=== PATIENT | male | born 1960 | race African-American/Black ===

== ENCOUNTER 2018-03-20 15:58 | Emergency (ER) | payer SELFPAY ==
[~2018-03-20] VITALS: Ht 185.4 cm; Wt 82.0 kg
[2018-03-20 16:09] VITALS: BP 142/92
== END 2018-03-20 19:04 | disposition left against medical advice (07) ==
LOC: ER 15:58
DX: R10.9 Unspecified abdominal pain (principal); Z53.21 Procedure and treatment not carried out due to patient leaving prior to being seen by health care provider

== ENCOUNTER 2018-09-01 18:00 | Emergency (ER) | payer MEDICAID ==
[~2018-09-01] VITALS: Ht 182.9 cm; Wt 77.0 kg
[2018-09-01] MEDS ORDERED: SODIUM CHLORIDE 0.9% 1,000 ML IV ONE (19:31)
[2018-09-01 19:42] LABS: BASOPHILS % 1.9 % (0.0-2.0); CHLORIDE 104 mEq/L (98-107); EOSINOPHILS % 0.3 % (0.0-5.0); HEMATOCRIT. 34.3 % (42.0-52.0); HEMOGLOBIN. 11.4 g/dL (14.0-18.0); LYMPHOCYTES % 33.9 % (20.0-50.0); MEAN CORPUSCULAR HEMOGLOBIN 29.6 pg (28.0-32.0); MEAN CORPUSCULAR VOLUME 89.4 fL (80.0-94.0); MEAN PLATELET VOLUME 6.8 fl (7.4-10.4); MONOCYTES % 4.9 % (2.0-8.0); PLATELET 285 x1000/uL (130-400); RED BLOOD CELL COUNT 3.84 mill/uL (4.7-6.1)
[2018-09-01] MEDS ORDERED: FAMOTIDINE 20MG/2ML VIAL IV ONE (19:45)
[2018-09-01 19:46] LABS: INR 1.1
[2018-09-01 20:42] LABS: PLATELET ESTIMATE NORMAL
[2018-09-01 22:10] LABS: ETHANOL BLOOD 428 mg/dL
[2018-09-02 13:40] VITALS: BP 120/78
== END 2018-09-02 13:41 | disposition home or self-care (01) ==
LOC: ER 18:00
DX: R07.89 Other chest pain (principal); F10.229 Alcohol dependence with intoxication, unspecified; E11.9 Type 2 diabetes mellitus without complications; I10 Essential (primary) hypertension; E78.00 Pure hypercholesterolemia, unspecified; H40.9 Unspecified glaucoma; F17.210 Nicotine dependence, cigarettes, uncomplicated; E86.0 Dehydration; D64.9 Anemia, unspecified; Y90.8 Blood alcohol level of 240 mg/100 ml or more; Z59.0 Homelessness; Z71.6 Tobacco abuse counseling
CPT/HCPCS: 36415; 71045; 80053; 80320; 82962; 83690; 83880; 84484; 85025; 85610; 93005; 96374; 99284; 99406; J3490; J7030; Z7610; G0480

== ENCOUNTER 2020-11-27 11:36 | Emergency (ER) | payer MEDICAID ==
[~2020-11-27] VITALS: Ht 177.8 cm; Wt 82.0 kg
[2020-11-27 12:31] LABS: BASOPHILS % 1.2 % (0.0-2.0); EOSINOPHILS % 2.3 % (0.0-5.0); HEMATOCRIT. 37.4 % (42.0-52.0); HEMOGLOBIN. 12.2 g/dL (14.0-18.0); LYMPHOCYTES % 35.7 % (20.0-50.0); MEAN CORPUSCULAR HEMOGLOBIN 34.2 pg (28.0-32.0); MEAN CORPUSCULAR VOLUME 104.7 fL (80.0-94.0); MEAN PLATELET VOLUME 7.4 fl (7.4-10.4); MONOCYTES % 12.9 % (2.0-8.0); NEUTROPHILS % 47.9 % (40.0-76.0); PLATELET 181 x1000/uL (130-400); RED BLOOD CELL COUNT 3.57 mill/uL (4.7-6.1)
[2020-11-27] MEDS ORDERED: DICYCLOMINE 10 MG/5 ML ORAL SYR PO STA (12:31)
[2020-11-27] MEDS ORDERED: MAGNESIUM/ALUMINUM HYDROXIDE/SIMETHICONE 30ML UDC PO STA (12:31)
[2020-11-27] MEDS ORDERED: VISCOUS LIDOCAINE 2% 15 ML UDC PO STA (12:31)
[2020-11-27 12:34] LABS: CHLORIDE 118 mEq/L (98-107)
[2020-11-27 13:23] LABS: INR 0.9; PROTHROMBIN TIME 10.2 sec (9.6-11.0)
[2020-11-27 14:34] LABS: CLARITY URINE CLEAR (CLEAR); COLOR URINE YELLOW (YELLOW); KETONES URINE NEGATIVE (NEGATIVE); LEUKOCYTE ESTERASE URINE NEGATIVE (NEGATIVE); NITRITE URINE NEGATIVE (NEGATIVE); OCCULT BLOOD URINE NEGATIVE (NEGATIVE); PH URINE 6.5 (4.5-8.0); PROTEIN URINE TRACE (NEGATIVE); SPECIFIC GRAVITY URINE 1.012 (1.005-1.030); UROBILINOGEN URINE 0.2 E.U./dL (0.2-1.0)
[2020-11-27 17:04] VITALS: BP 109/73
== END 2020-11-27 17:04 | disposition home or self-care (01) ==
LOC: ER 11:36
DX: R10.13 Epigastric pain (principal); E78.00 Pure hypercholesterolemia, unspecified; I12.9 Hypertensive chronic kidney disease with stage 1 through stage 4 chronic kidney disease, or unspecified chronic kidney disease; N18.9 Chronic kidney disease, unspecified; Z98.890 Other specified postprocedural states
CPT/HCPCS: 36415; 74018; 80053; 81003; 85025; 99285

== ENCOUNTER 2020-11-27 18:46 | Inpatient (IN) | payer MEDICAID ==
[~2020-11-27] VITALS: Ht 190.5 cm; Wt 85.3 kg
[2020-11-27] MEDS ORDERED: MAGNESIUM/ALUMINUM HYDROXIDE/SIMETHICONE 30ML UDC PO STA (20:11)
[2020-11-27] MEDS ORDERED: SODIUM CHLORIDE 0.9% 1000ML BAG (SEPSIS BOLUS) IV ONE (20:45)
[2020-11-27 22:45] LABS: CLARITY URINE CLEAR (CLEAR); COLOR URINE YELLOW (YELLOW); KETONES URINE NEGATIVE (NEGATIVE); LEUKOCYTE ESTERASE URINE NEGATIVE (NEGATIVE); NITRITE URINE NEGATIVE (NEGATIVE); OCCULT BLOOD URINE NEGATIVE (NEGATIVE); PH URINE 6.5 (4.5-8.0); PROTEIN URINE NEGATIVE (NEGATIVE); SPECIFIC GRAVITY URINE 1.014 (1.005-1.030); UROBILINOGEN URINE 0.2 E.U./dL (0.2-1.0)
[2020-11-27 22:56] LABS: *AMPHETAMINES SCREEN URINE NEGATIVE (NEGATIVE); *BARBITURATES SCREEN URINE NEGATIVE (NEGATIVE); *BENZODIAZEPINES SCREEN URINE NEGATIVE (NEGATIVE); *COCAINE SCREEN URINE NEGATIVE (NEGATIVE); METHADONE URINE SCREEN NEGATIVE (NEGATIVE)
[2020-11-27 22:58] LABS: CANNABINOID URINE SCREEN NEGATIVE (NEGATIVE); OPIATES URINE SCREEN NEGATIVE (NEGATIVE); PHENCYCLIDINE URINE SCREEN NEGATIVE (NEGATIVE)
[2020-11-27 23:37] LABS: BASOPHILS % 0.7 % (0.0-2.0); EOSINOPHILS % 3.2 % (0.0-5.0); HEMATOCRIT. 35.8 % (42.0-52.0); HEMOGLOBIN. 12.1 g/dL (14.0-18.0); LYMPHOCYTES % 28.3 % (20.0-50.0); MEAN CORPUSCULAR HEMOGLOBIN 34.9 pg (28.0-32.0); MEAN CORPUSCULAR VOLUME 103.3 fL (80.0-94.0); MEAN PLATELET VOLUME 7.3 fl (7.4-10.4); MONOCYTES % 10.9 % (2.0-8.0); NEUTROPHILS % 56.9 % (40.0-76.0); PLATELET 165 x1000/uL (130-400); RED BLOOD CELL COUNT 3.47 mill/uL (4.7-6.1); RED CELL DISTRIBUTION WIDTH 13.3 % (11.6-14.6)
[2020-11-27 23:48] LABS: PARTIAL THROMBOPLASTIN TIME 26.8 sec (23.4-31.0); PROTHROMBIN TIME 10.3 sec (9.6-11.0)
[2020-11-28] MEDS ORDERED: ASPIRIN 325MG EC TABLET PO ONE
[2020-11-28 00:04] LABS: CHLORIDE 117 mEq/L (98-107)
[2020-11-28 00:33] LABS: ETHANOL BLOOD 376 mg/dL
[2020-11-28] MEDS ORDERED: ACETAMINOPHEN 325MG TABLET PO PRN (03:15)
[2020-11-28] MEDS ORDERED: CLONIDINE 0.1MG TABLET PO PRN (03:15)
[2020-11-28] MEDS ORDERED: DIPHENHYDRAMINE 50MG/ML VIAL IV PRN (03:15)
[2020-11-28] MEDS ORDERED: MAGNESIUM/ALUMINUM HYDROXIDE/SIMETHICONE 30ML UDC PO PRN (03:15)
[2020-11-28] MEDS ORDERED: LORAZEPAM 2MG/ML CPJ IV PRN (03:15)
[2020-11-28] MEDS ORDERED: [UNRECOGNIZED DRUG - REMARK] IV NR (04:00)
[2020-11-28] MEDS ORDERED: MAGNESIUM 2 G PREMIX 50 ML IV NR (05:00)
[2020-11-28] MEDS ORDERED: POTASSIUM CHLORIDE 20MEQ TABLET SR PO NR (05:00)
[2020-11-28 05:45] VITALS: BP 146/79
[2020-11-28] MEDS: OMEPRAZOLE 20MG CAPSULE EXTENDED RELEASE PO SCH ×2 (06:09→17:47)
[2020-11-28 06:37] VITALS: BP 146/79
[2020-11-28 08:00] VITALS: BP 123/72
[2020-11-28 12:00] VITALS: BP 149/86
[2020-11-28] MEDS: ACETAMINOPHEN 325MG TABLET PO PRN ×2 (13:43→20:37)
[2020-11-28 16:00] VITALS: BP 153/79
[2020-11-28] MEDS: ONDANSETRON HCL 4MG/2ML INJ IV PRN ×2 (17:47→23:39)
[2020-11-28] MEDS: SUCRALFATE 1 G/10 ML UDC PO SCH ×2 (17:47→20:32)
[2020-11-28 20:00] VITALS: BP 149/84
[2020-11-28] MEDS: ZOLPIDEM TARTRATE 5MG TABLET PO PRN (23:40)
[2020-11-29] VITALS: BP 156/85
[2020-11-29] MEDS: VANCOMYCIN 1,500 MG in DEXT 5% WATER 250 ML IV SCH ×3 (01:52→23:35)
[2020-11-29 04:00] VITALS: BP 140/87
[2020-11-29] MEDS: ACETAMINOPHEN 325MG TABLET PO PRN ×2 (05:40→19:30)
[2020-11-29] MEDS: OMEPRAZOLE 20MG CAPSULE EXTENDED RELEASE PO SCH ×2 (06:13→18:43)
[2020-11-29] MEDS: SUCRALFATE 1 G/10 ML UDC PO SCH ×4 (06:13→21:51)
[2020-11-29 08:00] VITALS: BP 148/88
[2020-11-29] MEDS: THIAMINE HCL 100MG TABLET PO SCH (11:21)
[2020-11-29] MEDS: ONDANSETRON HCL 4MG/2ML INJ IV PRN (11:22)
[2020-11-29 12:00] VITALS: BP 132/67
[2020-11-29 12:45] LABS: BASOPHILS % 0.6 % (0.0-2.0); EOSINOPHILS % 0.8 % (0.0-5.0); HEMOGLOBIN. 11.8 g/dL (14.0-18.0); LYMPHOCYTES % 15.8 % (20.0-50.0); MEAN CORPUSCULAR HEMOGLOBIN 34.8 pg (28.0-32.0); MEAN CORPUSCULAR VOLUME 103.1 fL (80.0-94.0); MEAN PLATELET VOLUME 8.2 fl (7.4-10.4); MONOCYTES % 10.5 % (2.0-8.0); NEUTROPHILS % 72.3 % (40.0-76.0); PLATELET 171 x1000/uL (130-400); RED CELL DISTRIBUTION WIDTH 12.4 % (11.6-14.6)
[2020-11-29 12:50] LABS: CHLORIDE 104 mEq/L (98-107)
[2020-11-29 16:00] VITALS: BP 137/67
[2020-11-29] MEDS: GUAIFENESIN 200MG TABLET PO PRN (18:41)
[2020-11-29 20:00] VITALS: BP 142/88
[2020-11-29] MEDS: ZOLPIDEM TARTRATE 5MG TABLET PO PRN (21:51)
[2020-11-30] VITALS: BP 148/82
[2020-11-30] MEDS: GUAIFENESIN 200MG TABLET PO PRN ×4 (02:26→21:46)
[2020-11-30 04:00] VITALS: BP 147/89
[2020-11-30] MEDS: ACETAMINOPHEN 325MG TABLET PO PRN ×3 (06:11→21:05)
[2020-11-30] MEDS: OMEPRAZOLE 20MG CAPSULE EXTENDED RELEASE PO SCH ×2 (06:11→17:28)
[2020-11-30] MEDS: SUCRALFATE 1 G/10 ML UDC PO SCH ×4 (06:11→21:05)
[2020-11-30 07:11] LABS: CHLORIDE 105 mEq/L (98-107)
[2020-11-30 08:00] VITALS: BP 139/80
[2020-11-30] MEDS: THIAMINE HCL 100MG TABLET PO SCH (08:16)
[2020-11-30 12:00] VITALS: BP 139/90
[2020-11-30] MEDS: VANCOMYCIN 1,500 MG in DEXT 5% WATER 250 ML IV SCH (12:12)
[2020-11-30] MEDS ORDERED: CEFTRIAXONE 1,000 MG in DEXTROSE 5% WATER 50 ML IV SCH (13:00)
[2020-11-30 16:00] VITALS: BP 131/83
[2020-11-30] MEDS: LOPERAMIDE HCL 2MG CAPSULE PO PRN (17:28)
[2020-11-30] MEDS: KETOROLAC 30MG/ML VIAL IV PRN ×2 (17:33→21:47)
[2020-11-30 20:00] VITALS: BP 144/79
[2020-11-30] MEDS: ZOLPIDEM TARTRATE 5MG TABLET PO PRN (21:52)
[2020-12-01] VITALS: BP 114/60
[2020-12-01 04:00] VITALS: BP 119/67
[2020-12-01] MEDS: LOPERAMIDE HCL 2MG CAPSULE PO PRN ×3 (05:00→17:49)
[2020-12-01] MEDS: ACETAMINOPHEN 325MG TABLET PO PRN ×2 (05:00→17:54)
[2020-12-01] MEDS: KETOROLAC 30MG/ML VIAL IV PRN ×3 (05:01→17:50)
[2020-12-01] MEDS: GUAIFENESIN 200MG TABLET PO PRN ×3 (05:06→17:49)
[2020-12-01] MEDS: OMEPRAZOLE 20MG CAPSULE EXTENDED RELEASE PO SCH ×2 (07:00→17:49)
[2020-12-01] MEDS: SUCRALFATE 1 G/10 ML UDC PO SCH ×4 (07:01→21:05)
[2020-12-01 08:00] VITALS: BP 137/84
[2020-12-01] MEDS: THIAMINE HCL 100MG TABLET PO SCH (09:10)
[2020-12-01 12:00] VITALS: BP 133/69
[2020-12-01] MEDS: CEFTRIAXONE 2 G in DEXTROSE 5% WATER 50 ML IV SCH (13:25)
[2020-12-01 16:00] VITALS: BP 147/66
[2020-12-01 20:00] VITALS: BP 145/82
[2020-12-02] VITALS: BP 132/86
[2020-12-02] MEDS: KETOROLAC 30MG/ML VIAL IV PRN ×3 (01:14→20:50)
[2020-12-02] MEDS: GUAIFENESIN 200MG TABLET PO PRN ×4 (01:14→20:49)
[2020-12-02 04:00] VITALS: BP 138/70
[2020-12-02] MEDS: OMEPRAZOLE 20MG CAPSULE EXTENDED RELEASE PO SCH ×2 (06:15→17:54)
[2020-12-02] MEDS: SUCRALFATE 1 G/10 ML UDC PO SCH ×4 (06:15→20:49)
[2020-12-02 08:00] VITALS: BP 141/85
[2020-12-02] MEDS: ACETAMINOPHEN 325MG TABLET PO PRN (08:48)
[2020-12-02] MEDS: THIAMINE HCL 100MG TABLET PO SCH (08:48)
[2020-12-02 12:00] VITALS: BP 139/72
[2020-12-02] MEDS: CEFTRIAXONE 2 G in DEXTROSE 5% WATER 50 ML IV SCH (13:48)
[2020-12-02 16:00] VITALS: BP 147/67
[2020-12-02 20:00] VITALS: BP 175/85
[2020-12-02] MEDS: ZOLPIDEM TARTRATE 5MG TABLET PO PRN (20:49)
[2020-12-03] VITALS: BP 158/89
[2020-12-03 04:00] VITALS: BP 139/74
[2020-12-03] MEDS: GUAIFENESIN 200MG TABLET PO PRN ×2 (04:24→08:42)
[2020-12-03] MEDS: KETOROLAC 30MG/ML VIAL IV PRN (04:24)
[2020-12-03] MEDS: OMEPRAZOLE 20MG CAPSULE EXTENDED RELEASE PO SCH (06:40)
[2020-12-03] MEDS: LOPERAMIDE HCL 2MG CAPSULE PO PRN (06:40)
[2020-12-03] MEDS: SUCRALFATE 1 G/10 ML UDC PO SCH ×2 (06:41→12:30)
[2020-12-03 08:00] VITALS: BP 127/79
[2020-12-03] MEDS: THIAMINE HCL 100MG TABLET PO SCH (08:42)
[2020-12-03 12:00] VITALS: BP 127/72
[2020-12-03] MEDS: CEFTRIAXONE 2 G in DEXTROSE 5% WATER 50 ML IV SCH (12:30)
[2020-12-03 14:43] VITALS: BP 146/87
[2020-12-03 16:00] VITALS: BP 146/87
== END 2020-12-03 17:00 | disposition home or self-care (01) | DRG 720 ==
LOC: ER 18:46 → ENRESERV 11-28 01:50 → MICUSO 11-28 02:11 → 8WST 11-28 04:37
PROVIDERS: ADMIT Internal Medicine; ATTEND Internal Medicine
DX: A41.9 Sepsis, unspecified organism (principal); E87.1 Hypo-osmolality and hyponatremia; S22.32XA Fracture of one rib, left side, initial encounter for closed fracture; K29.70 Gastritis, unspecified, without bleeding; E87.6 Hypokalemia; F10.229 Alcohol dependence with intoxication, unspecified; Y90.8 Blood alcohol level of 240 mg/100 ml or more; K86.1 Other chronic pancreatitis; N28.89 Other specified disorders of kidney and ureter; E78.00 Pure hypercholesterolemia, unspecified; F17.200 Nicotine dependence, unspecified, uncomplicated; I10 Essential (primary) hypertension; Z20.822 Contact with and (suspected) exposure to COVID-19; K52.9 Noninfective gastroenteritis and colitis, unspecified; X58.XXXA Exposure to other specified factors, initial encounter; Z59.0 Homelessness; Y93.89 Activity, other specified; Y92.89 Other specified places as the place of occurrence of the external cause; Y99.8 Other external cause status
CPT/HCPCS: 36415; 71045; 71100; 74176; 80048; 80053; 80202; 80305; 80320; 81003; 83605; 83880; 84145; 84484; 85025; 85651; 86140; 87077; 87186; 87426; 93005; 93306; 99285; J0696; J1200; J1885; J2060; J2405; J3370; J3411; J3475; J3490; J7030; J7040; J7060; J7070; G0480

== ENCOUNTER 2020-12-28 12:42 | Emergency (ER) | payer MEDICAID ==
[~2020-12-28] VITALS: Ht 182.9 cm; Wt 88.0 kg
[2020-12-28 12:49] VITALS: BP 128/72
[2020-12-28 14:01] LABS: CLARITY URINE CLEAR (CLEAR); COLOR URINE YELLOW (YELLOW); KETONES URINE 1+ (NEGATIVE); LEUKOCYTE ESTERASE URINE 1+ (NEGATIVE); NITRITE URINE NEGATIVE (NEGATIVE); OCCULT BLOOD URINE TRACE (NEGATIVE); PROTEIN URINE 1+ (NEGATIVE); SPECIFIC GRAVITY URINE 1.013 (1.005-1.030)
[2020-12-28 14:19] LABS: *AMPHETAMINES SCREEN URINE NEGATIVE (NEGATIVE); *BARBITURATES SCREEN URINE NEGATIVE (NEGATIVE); *BENZODIAZEPINES SCREEN URINE NEGATIVE (NEGATIVE); CANNABINOID URINE SCREEN NEGATIVE (NEGATIVE); OPIATES URINE SCREEN NEGATIVE (NEGATIVE); PHENCYCLIDINE URINE SCREEN NEGATIVE (NEGATIVE)
[2020-12-28 14:20] LABS: *COCAINE SCREEN URINE NEGATIVE (NEGATIVE); METHADONE URINE SCREEN NEGATIVE (NEGATIVE)
== END 2020-12-28 15:43 | disposition left against medical advice (07) ==
LOC: ER 12:42
DX: R10.9 Unspecified abdominal pain (principal); M54.9 Dorsalgia, unspecified; N28.89 Other specified disorders of kidney and ureter; E78.00 Pure hypercholesterolemia, unspecified; I10 Essential (primary) hypertension
CPT/HCPCS: 71045; 72100; 74176; 76870; 80305; 81003; 93005; 93976; 99285

== ENCOUNTER 2020-12-31 14:09 | Inpatient (IN) | payer MEDICAID ==
[~2020-12-31] VITALS: Ht 185.4 cm; Wt 71.2 kg
[2020-12-31] MEDS ORDERED: ONDANSETRON HCL 4MG/2ML INJ IV STA (14:18)
[2020-12-31] MEDS ORDERED: MORPHINE SULFATE 4 MG/ML CPJ (NOT FOR IM USE) IV STA (14:18)
[2020-12-31] MEDS ORDERED: SODIUM CHLORIDE 0.9% 1,000 ML IV ONE ×2 (14:30→16:15)
[2020-12-31 14:51] LABS: HEMATOCRIT. 40.3 % (42.0-52.0); HEMOGLOBIN. 13.3 g/dL (14.0-18.0); MEAN CORPUSCULAR HEMOGLOBIN 33.4 pg (28.0-32.0); MEAN CORPUSCULAR VOLUME 101.7 fL (80.0-94.0); MEAN PLATELET VOLUME 8.2 fl (7.4-10.4); PLATELET 199 x1000/uL (130-400); RED BLOOD CELL COUNT 3.97 mill/uL (4.7-6.1); RED CELL DISTRIBUTION WIDTH 14.2 % (11.6-14.6)
[2020-12-31 14:58] LABS: INR 1.1
[2020-12-31] MEDS ORDERED: MORPHINE SULFATE 2 MG/ML CPJ (NOT FOR IM USE) IV NR ×2 (15:00→16:40)
[2020-12-31 15:07] LABS: CHLORIDE 96 mEq/L (98-107)
[2020-12-31 15:12] LABS: ETHANOL BLOOD 25 mg/dL
[2020-12-31 16:04] LABS: PLATELET ESTIMATE NORMAL
[2020-12-31 16:14] LABS: KETONES URINE 4+ (NEGATIVE); LEUKOCYTE ESTERASE URINE NEGATIVE (NEGATIVE); NITRITE URINE NEGATIVE (NEGATIVE); OCCULT BLOOD URINE TRACE (NEGATIVE); PROTEIN URINE 2+ (NEGATIVE); SPECIFIC GRAVITY URINE 1.023 (1.005-1.030)
[2020-12-31] MEDS ORDERED: PIPERACILLIN/TAZ 3.375G PREMIX 50 ML IV NR (16:15)
[2020-12-31] MEDS ORDERED: MORPHINE SULFATE 4 MG/ML CPJ (NOT FOR IM USE) IV ONE (16:15)
[2020-12-31] MEDS ORDERED: VANCOMYCIN 1 G PREMIX 200 ML IV NR (16:15)
[2020-12-31 16:19] LABS: CLARITY URINE SLIGHTLY HAZY (CLEAR); COLOR URINE DARK YELLOW (YELLOW)
[2020-12-31 17:17] LABS: *AMPHETAMINES SCREEN URINE NEGATIVE (NEGATIVE); *BARBITURATES SCREEN URINE NEGATIVE (NEGATIVE); *BENZODIAZEPINES SCREEN URINE NEGATIVE (NEGATIVE)
[2020-12-31 17:18] LABS: *COCAINE SCREEN URINE PRESUMTIVE POSITIVE (NEGATIVE); CANNABINOID URINE SCREEN NEGATIVE (NEGATIVE); METHADONE URINE SCREEN NEGATIVE (NEGATIVE); OPIATES URINE SCREEN NEGATIVE (NEGATIVE); PHENCYCLIDINE URINE SCREEN PRESUMTIVE POSITIVE (NEGATIVE)
[2020-12-31 22:05] VITALS: BP 150/84
[2020-12-31] MEDS ORDERED: ENOXAPARIN 40MG/0.4ML SYR SUBCUT SCH (23:30)
[2020-12-31] MEDS ORDERED: DOCUSATE SODIUM 100MG CAPSULE PO PRN (23:30)
[2020-12-31] MEDS ORDERED: IPRATROPIUM/ALBUTEROL 0.5-3(2.5)MG/3ML NEB NEB PRN (23:30)
[2020-12-31] MEDS ORDERED: ACETAMINOPHEN 325MG TABLET PO PRN ×2 (23:30)
[2020-12-31] MEDS: ONDANSETRON HCL 4MG/2ML INJ IV PRN (23:30)
[2020-12-31] MEDS ORDERED: NITROGLYCERIN 0.4MG TABLET SL SL PRN (23:30)
[2020-12-31] MEDS ORDERED: TRAMADOL 50MG TABLET PO PRN (23:30)
[2020-12-31] MEDS ORDERED: DEXTROSE 50% WATER 50ML SYRINGE IV PRN (23:30)
[2020-12-31] MEDS ORDERED: LORAZEPAM 2MG/ML CPJ IV PRN (23:30)
[2020-12-31] MEDS ORDERED: GUAIFENESIN 200MG/10ML SUGAR FREE UDC PO PRN (23:30)
[2020-12-31] MEDS: SODIUM CHLORIDE 0.9% 1,000 ML IV SCH (23:57)
[2020-12-31] MEDS: KETOROLAC 30MG/ML VIAL IV PRN (23:58)
[2020-12-31] MEDS: ZOLPIDEM TARTRATE 5MG TABLET PO PRN (23:59)
[2021-01-01] VITALS (7 sets, daily range): BP systolic 118–155; BP diastolic 67–93
[2021-01-01] MEDS: LEVOFLOXACIN 500MG PREMIX 100 ML IV SCH (00:17)
[2021-01-01] MEDS: CLONIDINE 0.1MG TABLET PO PRN (00:53)
[2021-01-01] MEDS: BLOOD SUGAR DIAGNOSTIC STRIP TEST SCH ×4 (05:43→21:04)
[2021-01-01] MEDS: DILTIAZEM HCL 60MG TABLET PO SCH ×3 (05:43→21:06)
[2021-01-01] MEDS: ONDANSETRON HCL 4MG/2ML INJ IV PRN ×2 (05:45→11:47)
[2021-01-01] MEDS: KETOROLAC 30MG/ML VIAL IV PRN (06:12)
[2021-01-01] MEDS: INSULIN LISPRO 100 UNITS/ML SUBCUT SCH ×4 (06:20→21:00)
[2021-01-01 06:26] LABS: HEMATOCRIT. 38.4 % (42.0-52.0); HEMOGLOBIN. 12.7 g/dL (14.0-18.0); MEAN CORPUSCULAR VOLUME 103.2 fL (80.0-94.0); MEAN PLATELET VOLUME 8.9 fl (7.4-10.4); PLATELET 172 x1000/uL (130-400); RED BLOOD CELL COUNT 3.72 mill/uL (4.7-6.1); RED CELL DISTRIBUTION WIDTH 14.4 % (11.6-14.6)
[2021-01-01 06:31] LABS: CHLORIDE 102 mEq/L (98-107)
[2021-01-01 06:42] LABS: TOTAL IRON BINDING CAPACITY 292 ug/dL (250-450)
[2021-01-01 06:43] LABS: PHOSPHORUS 2.4 mg/dL (2.5-4.9)
[2021-01-01 06:44] LABS: LDL CHOLESTEROL 84 mg/dL (5-100)
[2021-01-01 06:46] LABS: AMYLASE 55 IU/L (25-115)
[2021-01-01 06:47] LABS: HDL CHOLESTEROL 109 mg/dL (40-59)
[2021-01-01 07:13] LABS: FOLIC ACID (FOLATE) SERUM 11.4 ng/mL (>5.38)
[2021-01-01] MEDS: SODIUM CHLORIDE 0.9% 1,000 ML IV SCH ×2 (08:51→15:57)
[2021-01-01] MEDS: PANTOPRAZOLE SODIUM 40 MG/VIAL IV SCH (08:52)
[2021-01-01] MEDS ORDERED: ENOXAPARIN 30MG/0.3ML SYR SUBCUT SCH (09:00)
[2021-01-01] MEDS ORDERED: POTASSIUM CHLORIDE 20MEQ/PACKET PO NR (11:30)
[2021-01-01] MEDS ORDERED: POTASSIUM PHOS,M-BASIC-D-BASIC 20 MMOL in DEXT 5% WATER 243.3333 ML IV SCH (13:00)
[2021-01-01] MEDS ORDERED: MAGNESIUM 2 G PREMIX 50 ML IV SCH (13:00)
[2021-01-01 18:12] LABS: PLATELET ESTIMATE NORMAL
[2021-01-01] MEDS: ENOXAPARIN 40MG/0.4ML SYR SUBCUT SCH (21:04)
[2021-01-01] MEDS: ZOLPIDEM TARTRATE 5MG TABLET PO PRN (21:05)
[2021-01-02] VITALS: BP 118/57
[2021-01-02] MEDS: LEVOFLOXACIN 500MG PREMIX 100 ML IV SCH (00:31)
[2021-01-02] MEDS: KETOROLAC 30MG/ML VIAL IV PRN ×3 (00:38→15:31)
[2021-01-02 04:00] VITALS: BP_SYST 108; BP_SYST 112; BP_DIAS 69
[2021-01-02] MEDS: SODIUM CHLORIDE 0.9% 1,000 ML IV SCH ×2 (04:16→14:20)
[2021-01-02] MEDS: DILTIAZEM HCL 60MG TABLET PO SCH ×3 (05:00→21:26)
[2021-01-02] MEDS: BLOOD SUGAR DIAGNOSTIC STRIP TEST SCH ×4 (05:40→21:25)
[2021-01-02] MEDS: INSULIN LISPRO 100 UNITS/ML SUBCUT SCH ×4 (06:02→21:00)
[2021-01-02 08:00] VITALS: BP 141/76
[2021-01-02] MEDS: PANTOPRAZOLE SODIUM 40 MG/VIAL IV SCH (09:04)
[2021-01-02 10:39] LABS: BASOPHILS % 0.2 % (0.0-2.0); EOSINOPHILS % 0.6 % (0.0-5.0); HEMOGLOBIN. 11.2 g/dL (14.0-18.0); LYMPHOCYTES % 7.8 % (20.0-50.0); MEAN CORPUSCULAR HEMOGLOBIN 37.5 pg (28.0-32.0); MEAN CORPUSCULAR VOLUME 104.4 fL (80.0-94.0); MEAN PLATELET VOLUME 8.7 fl (7.4-10.4); NEUTROPHILS % 85.4 % (40.0-76.0); PLATELET 119 x1000/uL (130-400); RED BLOOD CELL COUNT 2.97 mill/uL (4.7-6.1); RED CELL DISTRIBUTION WIDTH 14.5 % (11.6-14.6)
[2021-01-02 10:53] LABS: CHLORIDE 106 mEq/L (98-107)
[2021-01-02 12:00] VITALS: BP 135/80
[2021-01-02] MEDS ORDERED: POTASSIUM CHLORIDE 20MEQ TABLET SR PO NR (12:45)
[2021-01-02] MEDS ORDERED: POTASSIUM PHOS,M-BASIC-D-BASIC 30 MMOL in SODIUM CHLORIDE 0.9% 500 ML IV SCH (14:00)
[2021-01-02 16:00] VITALS: BP 128/71
[2021-01-02 20:00] VITALS: BP 130/76
[2021-01-02] MEDS: ENOXAPARIN 40MG/0.4ML SYR SUBCUT SCH (21:25)
[2021-01-02] MEDS: ZOLPIDEM TARTRATE 5MG TABLET PO PRN (22:30)
[2021-01-03] VITALS: BP 134/66
[2021-01-03] MEDS: LEVOFLOXACIN 500MG PREMIX 100 ML IV SCH (00:40)
[2021-01-03] MEDS: SODIUM CHLORIDE 0.9% 1,000 ML IV SCH ×2 (00:40→08:47)
[2021-01-03] MEDS: MAGNESIUM/ALUMINUM HYDROXIDE/SIMETHICONE 30ML UDC PO PRN ×3 (00:56→21:02)
[2021-01-03 04:00] VITALS: BP 126/63
[2021-01-03] MEDS: DILTIAZEM HCL 60MG TABLET PO SCH ×3 (05:07→21:02)
[2021-01-03] MEDS: BLOOD SUGAR DIAGNOSTIC STRIP TEST SCH ×4 (06:28→21:02)
[2021-01-03] MEDS: INSULIN LISPRO 100 UNITS/ML SUBCUT SCH ×4 (06:28→21:00)
[2021-01-03 08:00] VITALS: BP 141/93
[2021-01-03] MEDS: PANTOPRAZOLE SODIUM 40 MG/VIAL IV SCH (08:46)
[2021-01-03] MEDS: KETOROLAC 30MG/ML VIAL IV PRN ×3 (08:47→22:44)
[2021-01-03 12:00] VITALS: BP 118/68
[2021-01-03 16:00] VITALS: BP 120/74
[2021-01-03] MEDS: LEVOFLOXACIN 500MG TABLET PO SCH (18:02)
[2021-01-03 20:00] VITALS: BP 141/79
[2021-01-03] MEDS: ENOXAPARIN 40MG/0.4ML SYR SUBCUT SCH (21:02)
[2021-01-03] MEDS: ZOLPIDEM TARTRATE 5MG TABLET PO PRN (22:20)
[2021-01-04] VITALS: BP 114/70
[2021-01-04 04:00] VITALS: BP 130/76
[2021-01-04] MEDS: DILTIAZEM HCL 60MG TABLET PO SCH ×3 (05:04→20:52)
[2021-01-04] MEDS: BLOOD SUGAR DIAGNOSTIC STRIP TEST SCH ×4 (05:55→20:52)
[2021-01-04] MEDS: INSULIN LISPRO 100 UNITS/ML SUBCUT SCH ×4 (05:55→20:52)
[2021-01-04 08:00] VITALS: BP 118/71
[2021-01-04] MEDS: PANTOPRAZOLE 40MG DR TABLET PO SCH (08:28)
[2021-01-04] MEDS: KETOROLAC 30MG/ML VIAL IV PRN (08:29)
[2021-01-04 12:00] VITALS: BP 125/89
[2021-01-04] MEDS: LEVOFLOXACIN 500MG TABLET PO SCH (12:17)
[2021-01-04 16:00] VITALS: BP 130/86
[2021-01-04 20:00] VITALS: BP 118/85
[2021-01-04] MEDS: ENOXAPARIN 40MG/0.4ML SYR SUBCUT SCH (20:51)
[2021-01-04] MEDS: ZOLPIDEM TARTRATE 5MG TABLET PO PRN (20:58)
[2021-01-04] MEDS: MAGNESIUM/ALUMINUM HYDROXIDE/SIMETHICONE 30ML UDC PO PRN (20:58)
[2021-01-05] VITALS: BP 114/66
[2021-01-05 04:00] VITALS: BP 104/73
[2021-01-05] MEDS: CLONIDINE 0.1MG TABLET PO PRN (06:10)
[2021-01-05] MEDS: MAGNESIUM/ALUMINUM HYDROXIDE/SIMETHICONE 30ML UDC PO PRN (06:10)
[2021-01-05] MEDS: BLOOD SUGAR DIAGNOSTIC STRIP TEST SCH (06:10)
[2021-01-05] MEDS: INSULIN LISPRO 100 UNITS/ML SUBCUT SCH (06:28)
[2021-01-05] MEDS: DILTIAZEM HCL 60MG TABLET PO SCH (06:31)
[2021-01-05 08:00] VITALS: BP 106/74
[2021-01-05] MEDS: PANTOPRAZOLE 40MG DR TABLET PO SCH (08:02)
[2021-01-05 09:55] VITALS: BP 106/74
== END 2021-01-05 10:45 | disposition home or self-care (01) | DRG 720 ==
LOC: ER 14:27 → 7EST 18:19 → EDBEDREQ 18:20 → EDBEDREQTM 18:20 → ENRESERV 21:25
PROVIDERS: ADMIT Internal Medicine; ATTEND Internal Medicine
DX: A41.9 Sepsis, unspecified organism (principal); K85.20 Alcohol induced acute pancreatitis without necrosis or infection; D63.8 Anemia in other chronic diseases classified elsewhere; E87.1 Hypo-osmolality and hyponatremia; R65.20 Severe sepsis without septic shock; E11.9 Type 2 diabetes mellitus without complications; E78.00 Pure hypercholesterolemia, unspecified; F17.210 Nicotine dependence, cigarettes, uncomplicated; F10.10 Alcohol abuse, uncomplicated; Y90.1 Blood alcohol level of 20-39 mg/100 ml; Z20.822 Contact with and (suspected) exposure to COVID-19; I10 Essential (primary) hypertension; J45.909 Unspecified asthma, uncomplicated; Z76.5 Malingerer [conscious simulation]; Z82.49 Family history of ischemic heart disease and other diseases of the circulatory system; Z86.73 Personal history of transient ischemic attack (TIA), and cerebral infarction without residual deficits; Z85.9 Personal history of malignant neoplasm, unspecified; Z71.41 Alcohol abuse counseling and surveillance of alcoholic
CPT/HCPCS: 36415; 71045; 74176; 76705; 80053; 80061; 80305; 80320; 81003; 82150; 82607; 82746; 82962; 83036; 83540; 83550; 83605; 83735; 83880; 84100; 84145; 84484; 85025; 87426; 93005; 93970; 99291; C9113; J1650; J1815; J1885; J1956; J2270; J2405; J2543; J3475; J3490; J7030; J7040; J7060; G0480

== ENCOUNTER 2021-01-30 07:02 | Inpatient (IN) | payer MEDICAID ==
[~2021-01-30] VITALS: Ht 185.4 cm; Wt 71.0 kg
[2021-01-30] MEDS ORDERED: MAGNESIUM/ALUMINUM HYDROXIDE/SIMETHICONE 30ML UDC PO STA (07:24)
[2021-01-30] MEDS ORDERED: ONDANSETRON HCL 4MG/2ML INJ IV STA (07:24)
[2021-01-30] MEDS ORDERED: MORPHINE SULFATE 4 MG/ML CPJ (NOT FOR IM USE) IV STA (07:24)
[2021-01-30] MEDS ORDERED: VISCOUS LIDOCAINE 2% 15 ML UDC PO STA (07:24)
[2021-01-30] MEDS ORDERED: SODIUM CHLORIDE 0.9% 1000ML BAG (SEPSIS BOLUS) IV ONE (07:30)
[2021-01-30 10:47] LABS: BASOPHILS % 0.6 % (0.0-2.0); EOSINOPHILS % 0.3 % (0.0-5.0); HEMATOCRIT. 36.4 % (42.0-52.0); HEMOGLOBIN. 12.1 g/dL (14.0-18.0); LYMPHOCYTES % 29.9 % (20.0-50.0); MEAN CORPUSCULAR HEMOGLOBIN 32.7 pg (28.0-32.0); MEAN CORPUSCULAR VOLUME 98.6 fL (80.0-94.0); MEAN PLATELET VOLUME 6.8 fl (7.4-10.4); MONOCYTES % 3.8 % (2.0-8.0); NEUTROPHILS % 65.4 % (40.0-76.0); PLATELET 214 x1000/uL (130-400); RED BLOOD CELL COUNT 3.69 mill/uL (4.7-6.1); RED CELL DISTRIBUTION WIDTH 15.7 % (11.6-14.6)
[2021-01-30 10:59] LABS: PROTHROMBIN TIME 11.1 sec (9.6-11.0)
[2021-01-30 11:00] LABS: CLARITY URINE CLEAR (CLEAR); COLOR URINE YELLOW (YELLOW); KETONES URINE NEGATIVE (NEGATIVE); LEUKOCYTE ESTERASE URINE NEGATIVE (NEGATIVE); NITRITE URINE NEGATIVE (NEGATIVE); OCCULT BLOOD URINE NEGATIVE (NEGATIVE); PROTEIN URINE 1+ (NEGATIVE); SPECIFIC GRAVITY URINE 1.012 (1.005-1.030); UROBILINOGEN URINE 0.2 E.U./dL (0.2-1.0)
[2021-01-30 11:15] LABS: CHLORIDE 111 mEq/L (98-107)
[2021-01-30 12:15] LABS: *AMPHETAMINES SCREEN URINE PRESUMTIVE POSITIVE (NEGATIVE); *BARBITURATES SCREEN URINE NEGATIVE (NEGATIVE); *BENZODIAZEPINES SCREEN URINE NEGATIVE (NEGATIVE); *COCAINE SCREEN URINE PRESUMTIVE POSITIVE (NEGATIVE)
[2021-01-30 12:16] LABS: CANNABINOID URINE SCREEN NEGATIVE (NEGATIVE); METHADONE URINE SCREEN NEGATIVE (NEGATIVE); OPIATES URINE SCREEN NEGATIVE (NEGATIVE); PHENCYCLIDINE URINE SCREEN NEGATIVE (NEGATIVE)
[2021-01-30] MEDS ORDERED: ACETAMINOPHEN 325MG TABLET PO PRN (14:45)
[2021-01-30] MEDS ORDERED: CLONIDINE 0.1MG TABLET PO PRN (14:45)
[2021-01-30] MEDS ORDERED: DIPHENHYDRAMINE 50MG/ML VIAL IV PRN (14:45)
[2021-01-30] MEDS: SODIUM CHLORIDE 0.9% 1,000 ML IV SCH ×2 (15:37→16:59)
[2021-01-30] MEDS: ONDANSETRON HCL 4MG/2ML INJ IV PRN (20:09)
[2021-01-30 23:00] VITALS: BP 123/84
[2021-01-31] MEDS: ONDANSETRON HCL 4MG/2ML INJ IV PRN (01:31)
[2021-01-31] MEDS ORDERED: ACETAMINOPHEN 325MG TABLET PO PRN (01:45)
[2021-01-31 04:00] VITALS: BP 128/68
[2021-01-31 07:26] LABS: BASOPHILS % 0.5 % (0.0-2.0); HEMATOCRIT. 34.9 % (42.0-52.0); HEMOGLOBIN. 11.9 g/dL (14.0-18.0); LYMPHOCYTES % 28.6 % (20.0-50.0); MEAN CORPUSCULAR HEMOGLOBIN 33.5 pg (28.0-32.0); MEAN CORPUSCULAR VOLUME 98.8 fL (80.0-94.0); MEAN PLATELET VOLUME 7.7 fl (7.4-10.4); MONOCYTES % 8.9 % (2.0-8.0); PLATELET 179 x1000/uL (130-400); RED BLOOD CELL COUNT 3.54 mill/uL (4.7-6.1); RED CELL DISTRIBUTION WIDTH 15.3 % (11.6-14.6)
[2021-01-31 07:38] LABS: CHLORIDE 103 mEq/L (98-107)
[2021-01-31 07:51] LABS: HDL CHOLESTEROL 123 mg/dL (40-59); LDL CHOLESTEROL 69 mg/dL (5-100)
[2021-01-31 08:00] VITALS: BP 139/69
[2021-01-31] MEDS ORDERED: NALOXONE HCL 0.4MG/ML VIAL IV PRN (11:30)
[2021-01-31 12:00] VITALS: BP 151/85
[2021-01-31] MEDS ORDERED: PNEUMOCOCCAL 23-VAL P-SAC VAC 0.5 ML IM ONE (12:00)
[2021-01-31] MEDS ORDERED: INFLUENZA VACCINE 05/PF 0.5 ML SYRINGE IM ONE (12:00)
[2021-01-31] MEDS: THIAMINE HCL 100MG TABLET PO SCH (13:00)
[2021-01-31] MEDS: FOLIC ACID 1MG TABLET PO SCH (13:01)
[2021-01-31] MEDS: MULTIVITAMINS,THER W-MINERALS TABLET PO SCH (13:01)
[2021-01-31] MEDS: HYDROCODONE/ACETAMINOPHEN 5/325MG TABLET PO PRN ×2 (13:02→20:05)
[2021-01-31] MEDS ORDERED: IOHEXOL-300 100 ML BOTTLE ONE (14:29)
[2021-01-31 16:00] VITALS: BP 137/80
[2021-01-31] MEDS: CHLORDIAZEPOXIDE 25MG CAPSULE PO SCH ×2 (17:50→21:08)
[2021-01-31] MEDS: SODIUM CHLORIDE 0.9% 1,000 ML IV SCH (17:52)
[2021-01-31 20:00] VITALS: BP 135/86
[2021-02-01] VITALS: BP 142/81
[2021-02-01] MEDS: SODIUM CHLORIDE 0.9% 1,000 ML IV SCH ×2 (03:51→18:39)
[2021-02-01 04:00] VITALS: BP 138/79
[2021-02-01] MEDS: HYDROCODONE/ACETAMINOPHEN 5/325MG TABLET PO PRN ×4 (04:00→21:09)
[2021-02-01] MEDS: CHLORDIAZEPOXIDE 25MG CAPSULE PO SCH ×3 (05:00→21:10)
[2021-02-01 06:16] LABS: BASOPHILS % 0.4 % (0.0-2.0); EOSINOPHILS % 3.2 % (0.0-5.0); HEMATOCRIT. 36.6 % (42.0-52.0); HEMOGLOBIN. 12.3 g/dL (14.0-18.0); LYMPHOCYTES % 25.5 % (20.0-50.0); MEAN PLATELET VOLUME 7.6 fl (7.4-10.4); MONOCYTES % 8.8 % (2.0-8.0); NEUTROPHILS % 62.1 % (40.0-76.0); PLATELET 155 x1000/uL (130-400); RED BLOOD CELL COUNT 3.73 mill/uL (4.7-6.1); RED CELL DISTRIBUTION WIDTH 15.5 % (11.6-14.6)
[2021-02-01 07:23] LABS: CHLORIDE 106 mEq/L (98-107)
[2021-02-01 08:00] VITALS: BP 135/70
[2021-02-01 09:06] LABS: ABSOLUTE LYMPHOCYTES 1.2 x10E3/uL (0.7-3.1); ABSOLUTE MONOCYTES 0.4 x10E3/uL (0.1-0.9); ABSOLUTE NEUTROPHILS 2.1 x10E3/uL (1.4-7.0); BASOPHILS 1 % (Not Estab.); HEMATOCRIT 35.4 % (37.5-51.0); HEMOGLOBIN 11.4 g/dL (13.0-17.7); IMMATURE GRANULOCYTES 0 % (Not Estab.); LYMPHOCYTES 32 % (Not Estab.); MEAN CORPUSCULAR HEMOGLOBIN 32.7 pg (26.6-33.0); MEAN CORPUSCULAR HGB CONC. 32.2 g/dL (31.5-35.7); MEAN CORPUSCULAR VOLUME 101 fL (79-97); MONOCYTES 10 % (Not Estab.); NEUTROPHILS 56 % (Not Estab.); PLATELETS 191 x10E3/uL (150-450); RBC 3.49 x10E6/uL (4.14-5.80); WBC 3.7 x10E3/uL (3.4-10.8)
[2021-02-01] MEDS: FOLIC ACID 1MG TABLET PO SCH (10:01)
[2021-02-01] MEDS: THIAMINE HCL 100MG TABLET PO SCH (10:02)
[2021-02-01] MEDS: MULTIVITAMINS,THER W-MINERALS TABLET PO SCH (10:02)
[2021-02-01 12:00] VITALS: BP 153/89
[2021-02-01 15:41] VITALS: BP 138/82
[2021-02-01 20:00] VITALS: BP 133/73
[2021-02-02 00:01] VITALS: BP 121/67
[2021-02-02 04:00] VITALS: BP 142/84
[2021-02-02] MEDS: CHLORDIAZEPOXIDE 25MG CAPSULE PO SCH ×2 (06:05→13:48)
[2021-02-02] MEDS: HYDROCODONE/ACETAMINOPHEN 5/325MG TABLET PO PRN (06:09)
[2021-02-02 08:00] VITALS: BP 140/85
[2021-02-02] MEDS: MULTIVITAMINS,THER W-MINERALS TABLET PO SCH (09:25)
[2021-02-02] MEDS: SODIUM CHLORIDE 0.9% 1,000 ML IV SCH (09:25)
[2021-02-02] MEDS: FOLIC ACID 1MG TABLET PO SCH (09:25)
[2021-02-02] MEDS: THIAMINE HCL 100MG TABLET PO SCH (09:25)
[2021-02-02 10:06] LABS: % CD 3 POS. LYMPHOCYTES 70.8 % (57.5-86.2); % CD 4 POS. LYMPHOCYTES 51.9 % (30.8-58.5); % CD 8 POS. LYMPH 19.2 % (12.0-35.5); ABSOLUTE CD 3 850 /uL (622-2402); ABSOLUTE CD 4 HELPER 623 /uL (359-1519); ABSOLUTE CD 8 SUPPRESSOR 230 /uL (109-897)
[2021-02-02 10:57] VITALS: BP 138/84
[2021-02-02] MEDS ORDERED: L25 PO (11:11)
[2021-02-02] MEDS ORDERED: MULT-230 MT (11:11)
[2021-02-02] MEDS ORDERED: THIA100T72 PO (11:11)
[2021-02-02] MEDS ORDERED: FOLI-43 PO (11:11)
[2021-02-02 12:00] VITALS: BP 138/84
[2021-02-03 19:10] LABS: *HIV-1 RNA BY PCR <20 copies/mL (.)
== END 2021-02-02 14:05 | disposition home or self-care (01) | DRG 468 ==
LOC: ER 07:02 → EDBEDREQSVC 11:53 → EDBEDREQ 11:53 → EDBEDREQTM 11:53 → 7EST 17:57 → EDBEDREQ 17:59 → EDBEDREQTM 17:59 → ENRESERV 20:27 → 7EST 23:04
PROVIDERS: ADMIT Internal Medicine; ATTEND Internal Medicine
DX: N28.89 Other specified disorders of kidney and ureter (principal); K76.0 Fatty (change of) liver, not elsewhere classified; D72.819 Decreased white blood cell count, unspecified; E11.9 Type 2 diabetes mellitus without complications; F10.20 Alcohol dependence, uncomplicated; F14.90 Cocaine use, unspecified, uncomplicated; K52.9 Noninfective gastroenteritis and colitis, unspecified; Z20.822 Contact with and (suspected) exposure to COVID-19; I10 Essential (primary) hypertension; J45.909 Unspecified asthma, uncomplicated; K57.30 Diverticulosis of large intestine without perforation or abscess without bleeding; K76.9 Liver disease, unspecified; F15.90 Other stimulant use, unspecified, uncomplicated; K82.8 Other specified diseases of gallbladder; K86.1 Other chronic pancreatitis; Z82.49 Family history of ischemic heart disease and other diseases of the circulatory system; Z86.73 Personal history of transient ischemic attack (TIA), and cerebral infarction without residual deficits; Z59.00 Homelessness unspecified
CPT/HCPCS: 36415; 71045; 74177; 80048; 80053; 80061; 80076; 80305; 80320; 81003; 82248; 82962; 83605; 84145; 84443; 84484; 85025; 86359; 86360; 87015; 87045; 87426; 87427; 87449; 87536; 89055; 90686; 93005; 93970; 99285; J1200; J2270; J2405; J7030; Q9967; G0480

== ENCOUNTER 2021-04-10 23:59 | Emergency (ER) | payer MEDICAID ==
[~2021-04-10] VITALS: Ht 188 cm; Wt 80.0 kg
[~2021-04-10 23:59] MED LIST: FOLI-43 PO; L25 PO; MULT-230 MT; THIA100T72 PO
[2021-04-11 00:06] VITALS: BP 149/86
[2021-04-11] MEDS ORDERED: IBUP-2029 MT (00:18)
[2021-04-11] MEDS ORDERED: KETOROLAC 60MG/2ML VIAL IM ONE (00:30)
== END 2021-04-11 00:43 | disposition home or self-care (01) ==
LOC: ER 23:59
DX: G89.29 Other chronic pain (principal); M54.89 Other dorsalgia; E11.9 Type 2 diabetes mellitus without complications; J45.909 Unspecified asthma, uncomplicated; F12.10 Cannabis abuse, uncomplicated; F99 Mental disorder, not otherwise specified; Z86.73 Personal history of transient ischemic attack (TIA), and cerebral infarction without residual deficits; Z85.9 Personal history of malignant neoplasm, unspecified; Z86.19 Personal history of other infectious and parasitic diseases
CPT/HCPCS: 99283; J1885

== ENCOUNTER 2021-04-11 02:06 | Emergency (ER) | payer MEDICAID ==
[~2021-04-11] VITALS: Ht 182.9 cm; Wt 78.0 kg
[~2021-04-11 02:06] MED LIST changes: +IBUP-2029 MT
[2021-04-11 02:20] VITALS: BP 135/85
== END 2021-04-11 02:30 | disposition home or self-care (01) ==
LOC: ER 02:06
DX: G89.29 Other chronic pain (principal); M54.89 Other dorsalgia; Z76.5 Malingerer [conscious simulation]; E11.9 Type 2 diabetes mellitus without complications; I10 Essential (primary) hypertension; F10.21 Alcohol dependence, in remission; F12.10 Cannabis abuse, uncomplicated; Z86.73 Personal history of transient ischemic attack (TIA), and cerebral infarction without residual deficits; Z85.9 Personal history of malignant neoplasm, unspecified
CPT/HCPCS: 99283

== ENCOUNTER 2021-10-11 21:37 | Emergency (ER) | payer MEDICAID ==
[~2021-10-11] VITALS: Ht 177.8 cm; Wt 78.0 kg
[2021-10-11] MEDS ORDERED: MORPHINE SULFATE 4 MG/ML CPJ (NOT FOR IM USE) IV NR (22:00)
[2021-10-11] MEDS ORDERED: SODIUM CHLORIDE 0.9% 1,000 ML IV ONE (22:15)
[2021-10-11 22:27] LABS: CLARITY URINE CLEAR (CLEAR); COLOR URINE YELLOW (YELLOW); KETONES URINE NEGATIVE (NEGATIVE); LEUKOCYTE ESTERASE URINE NEGATIVE (NEGATIVE); NITRITE URINE NEGATIVE (NEGATIVE); OCCULT BLOOD URINE NEGATIVE (NEGATIVE); PH URINE 6.5 (4.5-8.0); PROTEIN URINE NEGATIVE (NEGATIVE)
[2021-10-11 22:38] LABS: BASOPHILS % 0.4 % (0.0-2.0); EOSINOPHILS % 2.3 % (0.0-5.0); HEMATOCRIT. 29.2 % (42.0-52.0); HEMOGLOBIN. 9.3 g/dL (14.0-18.0); LYMPHOCYTES % 23.2 % (20.0-50.0); MEAN CORPUSCULAR HEMOGLOBIN 28.6 pg (28.0-32.0); MEAN CORPUSCULAR VOLUME 89.6 fL (80.0-94.0); MEAN PLATELET VOLUME 7.1 fl (7.4-10.4); MONOCYTES % 6.2 % (2.0-8.0); NEUTROPHILS % 67.9 % (40.0-76.0); PLATELET 274 x1000/uL (130-400); RED BLOOD CELL COUNT 3.26 mill/uL (4.7-6.1); RED CELL DISTRIBUTION WIDTH 17.9 % (11.6-14.6)
[2021-10-11 22:43] LABS: *AMPHETAMINES SCREEN URINE NEGATIVE (NEGATIVE); *BARBITURATES SCREEN URINE NEGATIVE (NEGATIVE); *BENZODIAZEPINES SCREEN URINE PRESUMTIVE POSITIVE (NEGATIVE); *COCAINE SCREEN URINE NEGATIVE (NEGATIVE); CANNABINOID URINE SCREEN NEGATIVE (NEGATIVE); METHADONE URINE SCREEN NEGATIVE (NEGATIVE); OPIATES URINE SCREEN NEGATIVE (NEGATIVE); PHENCYCLIDINE URINE SCREEN NEGATIVE (NEGATIVE)
[2021-10-11 22:45] LABS: CHLORIDE 110 mEq/L (98-107)
[2021-10-11 22:56] LABS: C REACTIVE PROTEIN QUANT 7.6 mg/L (0.0-3.0); CREATINE KINASE 111 IU/L (39-308); ETHANOL BLOOD 298 mg/dL
[2021-10-12] MEDS ORDERED: IBUP-2029 MT (00:26)
[2021-10-12 00:30] VITALS: BP 111/68
[2021-10-12] MEDS ORDERED: THIAMINE HCL 100MG TABLET PO NR (01:00)
== END 2021-10-12 00:50 | disposition home or self-care (01) ==
LOC: ER 21:37
DX: R10.31 Right lower quadrant pain (principal); F10.20 Alcohol dependence, uncomplicated; F16.10 Hallucinogen abuse, uncomplicated; I10 Essential (primary) hypertension; E11.9 Type 2 diabetes mellitus without complications; D64.9 Anemia, unspecified; F12.10 Cannabis abuse, uncomplicated; Y90.8 Blood alcohol level of 240 mg/100 ml or more; Z85.9 Personal history of malignant neoplasm, unspecified; Z86.73 Personal history of transient ischemic attack (TIA), and cerebral infarction without residual deficits; Z21 Asymptomatic human immunodeficiency virus [HIV] infection status; Z87.891 Personal history of nicotine dependence
CPT/HCPCS: 36415; 71045; 76770; 80053; 80305; 80320; 81003; 82550; 83605; 84145; 84484; 85025; 86140; 87040; 87086; 96361; 96374; 99285; J2270; J7030; G0480

== ENCOUNTER 2021-10-29 09:39 | Emergency (ER) | payer MEDICAID ==
[~2021-10-29] VITALS: Ht 185.4 cm; Wt 99.0 kg
[2021-10-29] MEDS ORDERED: KETOROLAC 30MG/ML VIAL IM ONE (10:15)
[2021-10-29 10:28] LABS: BASOPHILS % 1.6 % (0.0-2.0); EOSINOPHILS % 2.5 % (0.0-5.0); HEMATOCRIT. 29.7 % (42.0-52.0); HEMOGLOBIN. 9.7 g/dL (14.0-18.0); LYMPHOCYTES % 40.4 % (20.0-50.0); MEAN CORPUSCULAR HEMOGLOBIN 28.5 pg (28.0-32.0); MEAN CORPUSCULAR VOLUME 86.9 fL (80.0-94.0); MEAN PLATELET VOLUME 7.2 fl (7.4-10.4); MONOCYTES % 5.8 % (2.0-8.0); NEUTROPHILS % 49.7 % (40.0-76.0); PLATELET 229 x1000/uL (130-400); RED BLOOD CELL COUNT 3.42 mill/uL (4.7-6.1); RED CELL DISTRIBUTION WIDTH 18.8 % (11.6-14.6)
[2021-10-29 10:41] LABS: CHLORIDE 112 mEq/L (98-107)
[2021-10-29 13:11] VITALS: BP 128/79
[2021-10-29 13:32] LABS: ETHANOL BLOOD 393 mg/dL
== END 2021-10-29 13:38 | disposition home or self-care (01) ==
LOC: ER 09:39
DX: R07.89 Other chest pain (principal); E11.9 Type 2 diabetes mellitus without complications; I10 Essential (primary) hypertension; F12.10 Cannabis abuse, uncomplicated; F17.210 Nicotine dependence, cigarettes, uncomplicated; F10.21 Alcohol dependence, in remission; Z86.73 Personal history of transient ischemic attack (TIA), and cerebral infarction without residual deficits; Z85.9 Personal history of malignant neoplasm, unspecified
CPT/HCPCS: 36415; 71045; 80053; 80320; 83880; 84484; 85025; 93005; 96372; 99285; J1885; G0480

== ENCOUNTER 2021-12-17 14:24 | Emergency (ER) | payer MEDICAID ==
[~2021-12-17] VITALS: Ht 180.3 cm; Wt 73.0 kg
[2021-12-17] MEDS ORDERED: LIDOCAINE 5% PATCH TOP SCH ×2 (14:45→15:30)
[2021-12-17] MEDS ORDERED: ACETAMINOPHEN 325MG TABLET PO ONE (14:45)
[2021-12-17] MEDS ORDERED: IBUPROFEN 400MG TABLET PO ONE (14:45)
[2021-12-17 15:28] VITALS: BP 128/78
== END 2021-12-17 16:56 | disposition home or self-care (01) ==
LOC: ER 14:24
DX: M25.551 Pain in right hip (principal); I10 Essential (primary) hypertension; E78.00 Pure hypercholesterolemia, unspecified; E11.9 Type 2 diabetes mellitus without complications; Z86.73 Personal history of transient ischemic attack (TIA), and cerebral infarction without residual deficits; F12.10 Cannabis abuse, uncomplicated; F10.21 Alcohol dependence, in remission; Z85.9 Personal history of malignant neoplasm, unspecified
CPT/HCPCS: 73502; 99283